=== PATIENT | male | born 1960 | race Caucasian/White ===

== ENCOUNTER → 2024-04-21 07:01 | Outpatient (CLI) | payer MEDICARE, OTHER, SELFPAY ==
--- NOTE | 2024-04-21 | DI.US.S_ITS ---
PROCEDURE: US ABD AORTA ANEURYSM SCREEN INDICATIONS: ABDOMINAL BRUIT TECHNIQUE: Real time scanning was performed of the aorta and iliac arteries, with image documentation. COMPARISON: None. FINDINGS: Aorta: Proximal aortic diameter measures 2.6 cm. Mid-aorta measures 2.1 cm. Distal aortic diameter is 1.6 cm. Iliac arteries: Right common iliac artery measures 0.7 cm. Left common iliac artery measures 0.9 cm. IMPRESSION: Negative for aneurysm. Dictated by: Frederick Medina M.D. on 04/21/2024 at 15:24 Approved by: Frederick Medina M.D. on 04/21/2024 at 15:25
--- NOTE | 2024-04-21 | DI.ECHO.S_ITS ---
[facility]---------+ [facility] : : [address] : : [place] : : [id number] : : Phone: [phone] Echocardiogram Report + + :Name: HOLA SANTOYO Study Date: 04/21/2024 Height: 70 in : :[facility] ReadingLocation: Weight: 205 lb : : Gender: Male BSA: 2.1 m2 : :: 1960 Age: 63 yrs BP: 140/80 mmHg: :Reason For Study: ABDOMINAL BRUIT, ABALATION FOR ATRIAL : :FLUTTER : :Ordering Physician: LANE ALVAREZ Performed By: Tiff Perdue : :Referring: LANE ALVAREZ : + + Interpretation Summary 1. The left ventricular contractility is hyperdynamic. Estimated ejection fraction is greater than 70% with no segmental wall motion abnormalities. Mild concentric LVH. Grade 1 diastolic dysfunction. 2. The right ventricular contractility is normal. 3. Mild left atrial enlargement. All other cardiac chambers are of normal size. 4. There is severe fibrocalcific changes on the aortic valve with associated severe stenosis. Mean gradient is 48 mmHg with dimensionless index of 0.25. 5. No obvious intracardiac shunts. 6. No intracardiac masses nor thrombi. 7. No hemodynamically significant pericardial effusion. 8. Low right-sided filling pressures. Conclusion: Hyperdynamic left ventricular systolic function with severe aortic valvular stenosis. When compared with previous echocardiogram, the aortic valvular stenosis has progressed. Procedure: A two-dimensional transthoracic echocardiogram with color flow and Doppler was performed. Comparison is made with the echocardiogram of 03/31/2019. The study quality was technically difficult. A contrast injection of Definity was performed to improve assessment of LV function. Left Ventricle: The left ventricle is normal in size. There is mild concentric left ventricular hypertrophy. Left ventricular ejection fraction is estimated to be >75%. Diastolic parameters suggest a relaxation abnormality of the left ventricle, consistent with probable normal filling pressures. Right Ventricle: The right ventricle is normal in size and function. Atria: The left atrium is mildly dilated. Right atrial size is normal. There is no Doppler evidence for an interatrial shunt. Mitral Valve: The mitral valve is normal in structure and function. There is trace mitral regurgitation. Aortic Valve: The aortic valve is severely calcified. There is severely reduced leaflet mobility. The peak aortic velocity is 4.3 m/sec. The aortic valve mean gradient is 48 mmHg. The calculated aortic valve area is 0.9 cm2. There is trace aortic regurgitation. Tricuspid Valve: The tricuspid valve is normal in structure and function. There is trace tricuspid regurgitation. Pulmonary artery pressures cannot be estimated because of the lack of a measurable TR jet velocity. Pulmonic Valve: The pulmonic valve is not well seen, but is grossly normal. There is no pulmonic valvular regurgitation. Great Vessels: The aortic root is normal size. The dimensions of the ascending aorta are normal. The IVC is of normal diameter and collapses greater than 50% with a sniff. This suggests a low right atrial pressure of 3 mm Hg. Pericardium/ Pleura There is no pericardial effusion. There is no pleural effusion. MMode/2D Measurements & Calculations LVIDd: 5.3 cm LVOT diam: 2.0 cm LVIDs: 2.6 cm Ao root diam: 2.9 cm FS: 50.0 % asc Aorta Diam: 3.2 cm IVSd: 0.92 cm Ao Arch Diam (Prox Trans): 2.6 cm LVPWd: 0.97 cm LV samaniego. diameter/BSA (cm/m^2): 2.5 LV sys. diameter/BSA (cm/m^2): 1.2 LA A2 area: 24.0 cm2 RA long axis: 5.1 cm LA A4 area: 18.6 cm2 RA area: 16.1 cm2 LA length (vol): 5.2 cm RA vol: 42.7 ml LA vol: 73.4 ml RA : 20.2 ml/m2 LA vol index: 34.8 ml/m2 IVC diam: 1.4 cm RVD1 (basal): 4.0 cm TAPSE: 1.9 cm Doppler Measurements & Calculations Ao V2 max: 428.8 cm/sec LVOT Max Dank: 118.5 cm/sec Ao V2 mean: 322.5 cm/sec LV V1 max P.6 mmHg Ao max P.5 mmHg LV V1 VTI: 26.1 cm Ao mean P.2 mmHg ARTUR(I,D): 0.83 cm2 Ao V2 VTI: 102.5 cm ARTUR(V,D): 0.90 cm2 sev ratio: 0.25 ARTUR indexed to BSA (cm^2/m^2): 0.39 MV E max dank: 70.3 cm/sec PA V2 max: 102.5 cm/sec MV A max dank: 54.3 cm/sec PA V2 mean: 71.8 cm/sec MV E/A: 1.3 PA mean P.2 mmHg Med Peak E' Dank: 5.2 cm/sec PA pr(Accel): 32.8 mmHg E/E' med: 13.5 Lat Peak E' Dank: 6.7 cm/sec E/E' lat: 10.5 E/e' average: 12.0 MV dec time: 0.22 sec SV(LVOT): 84.6 ml Reading Physician:
--- NOTE | 2024-04-25 19:55 | DI.NM.S_ITS ---
DATE OF SERVICE: 04/26/2024 PROCEDURE: Rest only perfusion images. Please note, stress test was canceled by his regular dressage instructor, Dr. Alvarez, who found that the patient has severe aortic stenosis. RADIOPHARMACEUTICAL: 12.9 millicurie technetium-99m Myoview IV was injected at rest. RAW DATA: There is increased subdiaphragmatic activity. GATED STUDY: Resting LV ejection fraction 78% without any obvious wall motion abnormalities. Resting end-diastolic volume 102 mL. RESTING MYOCARDIAL PERFUSION SCAN: There appears to be small size, mildly decreased perfusion of basal inferior wall extending into the basal inferoseptum. CONCLUSION: This is a resting perfusion study only. It showed small size, mildly decreased perfusion of basal inferior wall extending into the basal inferoseptum. No stress images. On raw data, there is increased subdiaphragmatic activity. On gated study, preserved left ventricular function without any obvious wall motion abnormalities. Arun Zarate - CLAYTON/marie/ELIU doc#: [id number]/job#: [id number] dd: 04/25/2024 16:49:00 dt: 04/25/2024 19:21:00 DICTATING MD/COPIES TO: Preston Aguila MD COPIES MNE: ADILSON;
== END ==
PROVIDERS: PCP Nurse Practitioner Family; Referring Provider Internal Medicine; Visit Provider Internal Medicine
DX: Z01.810 Encounter for preprocedural cardiovascular examination (principal); Z13.6 Encounter for screening for cardiovascular disorders; I35.0 Nonrheumatic aortic (valve) stenosis; R09.89 Other specified symptoms and signs involving the circulatory and respiratory systems; Z98.890 Other specified postprocedural states; Z86.79 Personal history of other diseases of the circulatory system
CPT/HCPCS: 76706; 78451; 93306; A9502; C8929; Q9957